=== PATIENT | male | born 1975 | race Caucasian/White ===

== ENCOUNTER → 2019-08-29 09:19 | Outpatient (BNVA) | payer OTHER, SELFPAY | PROVIDERS: Family Provider Family Medicine; PCP Family Medicine; Visit Provider Otolaryngology | DX: J32.9 Chronic sinusitis, unspecified (principal); J34.2 Deviated nasal septum; J34.3 Hypertrophy of nasal turbinates; H69.80 Other specified disorders of Eustachian tube, unspecified ear; H93.13 Tinnitus, bilateral | CPT/HCPCS: 99214; J3301 ==

== ENCOUNTER 2019-09-09 06:45 | Day surgery (SDC) | payer OTHER, SELFPAY ==
[2019-09-08 14:53] VITALS: BMI 33.0
[2019-09-09] VITALS (9 sets, daily range): BP systolic 89–127; BP diastolic 66–94; PULSE 71–98; RESP 14–20; TEMP 36.2–36.8; O2SAT 94–98
--- NOTE | 2019-09-09 08:06 | PM.OP ---
Operative Report Date of procedure: 09/09/19 Preop Diagnosis: Nasal septal deformity, turbinate hypertrophy, chronic eustachian tube dysfunction Post-op diagnosis: same Procedure Done: Nasal septal reconstruction, turbinate reduction, bilateral myringotomy and tube, binocular microscope Pathology: none sent Surgeon: Jim Kirkland Condition: stable Disposition: PACU
[2019-09-09] MEDS: sodium chloride 0.9% 1,000 ML 30 ML IV (08:10)
--- NOTE | 2019-09-09 08:12 | P.HPUD_ITS ---
H&P update H&P Update: DATE OF SURGERY/PROCEDURE: 09/09/19 DATE H&P PERFORMED: 11/13 H&P UPDATE INFORMATION: H&P completed within last 30 days PLANNED PROCEDURE: Operation Date: 09/09/19 08:00 Proposed Procedures p Myringotomy and Tubes [facility] 99491 [id number] 25563 J34.3 H69.80(Not Applicable) - Jim Kirkland M.D s SeptoturbinoplastyNASAL SEPTAL RECONSTRUCTION (08614), BILATERAL INFERIOR NASAL TURBINATE REDUCTION(Not Applicable) - Jim Kirkland M.D Full H&P Perinent History: Social History: Social History Smoking and tobacco status: never smoked Alcohol intake: never
--- NOTE | 2019-09-09 08:12 | PM.HPUD ---
H&P update H&P Update: DATE OF SURGERY/PROCEDURE: 09/09/19 DATE H&P PERFORMED: 08/29/19 H&P UPDATE INFORMATION: H&P completed within last 30 days PLANNED PROCEDURE: Operation Date: 09/09/19 08:00 Proposed Procedures p Myringotomy and Tubes [facility] 38357 [id number] 21430 J34.3 H69.80(Not Applicable) - Jim Kirkland M.D s SeptoturbinoplastyNASAL SEPTAL RECONSTRUCTION (11639), BILATERAL INFERIOR NASAL TURBINATE REDUCTION(Not Applicable) - Jim Kirkland M.D Full H&P Perinent History: Social History: Social History Smoking and tobacco status: never smoked Alcohol intake: never
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
[2019-09-09] MEDS: ofloxacin 0.3% otic 5 mL Btl 3 DROP EAR-BOTH (08:53)
[2019-09-09] MEDS: neomycin-poly-bacitracin oint 28 gm 1 APPLIC TOPICAL (09:03)
[2019-09-09] MEDS: fentaNYL 50 mcg/mL INJ 2mL IVP ×2 (09:25→09:30)
--- NOTE | 2019-09-09 14:44 | ANE.PACU ---
 Inpatient post-anesthesia follow up: Airway intact: Yes Vital signs: Temperature 97.5 F Pulse Rate [Monito r] 72 Respiratory Rate 18 Blood Pressure [Le ft Arm] 127/80 Pulse Oximetry 95 Oxygen Delivery Me thod Room Air Oxygen Flow Rate 8 Fraction of Inspir ed Oxygen Hydration adequate: Yes Nausea and vomiting: No Mental status: Baseline
--- NOTE | 2019-10-03 08:15 | PM.OP ---
Operative Report Date of procedure: October 03, 2019 Pre-op Diagnosis: Nasal septal deformity, turbinate hypertrophy, chronic eustachian tube dysfunction Post-op diagnosis: same Post-op Findings: Deviated septum, turbinate hypertrophy Procedure Done: Reconstruction, turbinate reduction Pathology: none sent Surgeon: Jim Kirkland Anesthesia: General Findings: Deviated septum hypertrophied turbinates Condition: stable Disposition: PACU Brief History: Wesley is a 43-year-old male with nasal obstruction. The goals risks and alternatives of surgical care were discussed and informed consent was obtained. Procedure: The patient was taken to the operating room under satisfactory general endotracheal anesthesiaprepped draped and injected. A right hemitransfixion infection incision was created right anterior posterior left anterior posterior and inferior tunnels were created the deformity was resected and the septum was then affixed to the prespine fascia. Both right and left inferior nasal turbinates were reduced in piecemeal fashion with combination of blunt submucosal dissection. Splints were placed the patient tolerated the procedure well he was allowed awaken to take the recovery room where he was observed during the recovery period postoperative care instructions and counseling were given when the patient met discharge criteria he was discharged in satisfactory and stable condition.
== END 2019-09-09 10:30 | disposition home or self-care (01) ==
PROVIDERS: Family Provider Family Medicine; PCP Family Medicine; Visit Provider Otolaryngology
PROC: (CPT 69420; principal; 2019-09-09 08:00)
PROC: (CPT 30520; 2019-09-09 08:00)
DX: J34.3 Hypertrophy of nasal turbinates (principal); J34.2 Deviated nasal septum
CPT/HCPCS: 30140; 30520; 12345; J1100; J2001; J2704; J3010; J3490; J7030

== ENCOUNTER → 2019-09-16 09:02 | Outpatient (BNVA) | payer OTHER, SELFPAY | PROVIDERS: Family Provider Family Medicine; PCP Family Medicine; Visit Provider Otolaryngology | DX: Z48.89 Encounter for other specified surgical aftercare (principal); J34.3 Hypertrophy of nasal turbinates; J34.2 Deviated nasal septum; H69.83 Other specified disorders of Eustachian tube, bilateral | CPT/HCPCS: 99024; 99214 ==

== ENCOUNTER → 2019-09-30 09:09 | Outpatient (BNVA) | payer OTHER, SELFPAY | PROVIDERS: Family Provider Family Medicine; PCP Family Medicine; Visit Provider Otolaryngology | DX: H69.80 Other specified disorders of Eustachian tube, unspecified ear (principal); J34.3 Hypertrophy of nasal turbinates; J34.2 Deviated nasal septum | CPT/HCPCS: 99024; 99214 ==

== ENCOUNTER → 2022-05-30 14:15 | Outpatient (BNVA) | payer SELFPAY | PROVIDERS: Family Provider Family Medicine; PCP Family Medicine; Visit Provider Nurse Practitioner Family | DX: G43.909 Migraine, unspecified, not intractable, without status migrainosus (principal); M54.2 Cervicalgia; M54.9 Dorsalgia, unspecified; M25.511 Pain in right shoulder | CPT/HCPCS: 72040; 72100; 73030 ==

== ENCOUNTER 2023-02-07 04:05 | Inpatient (IN) | payer SELFPAY ==
[2023-02-07] VITALS (13 sets, daily range): BP systolic 109–148; BP diastolic 62–98; PULSE 95–118; RESP 16–24; TEMP 36.4–37.8; O2SAT 91–98; BMI 32.3
--- NOTE | 2023-02-07 04:16 | ED_ITS ---
HPI - Extremity Problem General: Chief complaint: Extremity Problem,Nontraumatic Stated complaint: R arm infection Time Seen by Provider: 02/07/23 04:07 Source: patient Mode of arrival: ambulatory Limitations: no limitations History of Present Illness: 39-year-old male states he had a sore to the back of his right arm with some warmth to touch he states he tried to pop it he has been having increased erythema and swelling to his right arm he states having pain in that arm as well. He was seen 2 days ago prescribed Bactrim states he had no improvement. Denies any fevers. His arm is quite swollen its worse with movement denies any injuries. Associated symptoms: Deny chest pain, fever(s) or rash Review of Systems Const: Denies: fever(s) or chills ENMT: Denies: throat pain or dental pain Card: Denies: chest pain Resp: Denies: dyspnea GI: Denies: abdominal pain, nausea, vomiting or diarrhea : Denies: dysuria Musc: Reports: extremity pain; Denies: neck pain or back pain Skin/Breast: Denies: rash Neuro: Denies: headache(s) PFSH ED PFSH: Medical History Allergic rhinitis Depression ADHD component History of fracture Hx of substance abuse Insomnia Traumatic brain injury with depressed skull fracture with loss of consciousness Surgical History History of ear surgery Social History Smoking and tobacco status: never smoked Second hand smoke exposure: No Alcohol intake: current Alcohol intake frequency: holidays/special occasions only Alcohol type: beer Desire information about alcohol rehabilitation?: No Substance/Drug Use: former Date of last use: 08/2016 Desire information about substance/drug rehabilitation?: No Counseling given: Yes Type of substance drug use counseling provided: provider counseling Caregiver/support person: Yes Lives independently: No Household members: spouse and children Housing: House Marital status: Number of children: 3 Sexually active: Yes Do you think of yourself as: Straight/Heterosexual Current gender identity: Male Physical Exam 2 Const: COMMON NORMALS: no acute distress, patient oriented x3 and healthy appearing HENMT: COMMON NORMALS: normocephalic and atraumatic HEAD & SCALP: normocephalic and atraumatic Neck/C-Spine: COMMON NORMALS: full ROM and supple Chest: COMMONS NORMALS: normal inspection of the chest and normal palpation of entire chest wall Resp: COMMON NORMALS: normal respiratory effort, No retractions, No use of acc essory muscles and clear to auscultation bilaterally AUSCULTATION: clear to auscultation bilaterally Cardio: COMMON NORMALS: regular rate, regular rhythm and No murmurs present (Cardio) RATE: regular rate RHYTHM: regular rhythm GI: COMMON NORMALS: Normal to inspection, nondistended, normoactive bowel sounds present, Soft to palpation, non-tender and no masses PALPATION: Yes Soft to palpation Extremity: COMMON NORMALS: full ROM NARRATIVE EXTREMITY EXAM: Wound to posterior right arm with erythema warmth to touch and swelling to his forearm and upper arm distal pulses sensation intact Neuro: COMMON NORMALS: patient oriented x3, moves all extremities and no focal motor deficits Psych: COMMON NORMALS: mental status grossly normal, Normal thought process present and cooperative THOUGHT PROCESS: Normal thought process present Skin: COMMON NORMALS: no rashes or lesions noted GENERAL SKIN EXAM: no rashes or lesions noted Course Vital Signs: Vital signs: Vital Signs Temperature 97.5 F L 02/07/23 04:09 Pulse Rate 118 H 02/07/23 04:09 Respiratory Rate 16 02/07/23 04:18 Blood Pressure 136/86 02/07/23 04:09 Pulse Oximetry 95 02/07/23 04:33 Oxygen Delivery Me thod Room Air 02/07/23 04:33 MDM - Extremity (Nontraumatic) Medical Decision Making Patient presents here with cellulitis along with DVT noted to his left upper extremity did speak to the hospitalist will admit at this time. Lab Data 02/07/23 04:20 02/07/23 04:20 Laboratory Results WBC 15.4 10^3/uL (4.0-10.0) H 02/07/23 04:20 RBC 6.19 10^6/uL (4.1-5.3) H 02/07/23 04:20 Hgb 16.9 g/dL (11.7-16.6) H 02/07/23 04:20 Hct 52.9 % (42.0-52.0) H 02/07/23 04:20 MCV 85.5 fl (80-94) 02/07/23 04:20 MCH 27.3 pg (28.0-34.0) L 02/07/23 04:20 MCHC 31.9 g/dL (30.0-36.0) 02/07/23 04:20 RDW 13.5 % (12.1-15.1) 02/07/23 04:20 Plt Count 191 10^3/cmm (130-400) 02/07/23 04:20 MPV 9.9 fL (7.4-10.4) 02/07/23 04:20 Neut % (Auto) 85.4 % 02/07/23 04:20 Lymph % (Auto) 6.5 % 02/07/23 04:20 Mchenry % (Auto) 7.1 % 02/07/23 04:20 Eos % (Auto) 0.2 % 02/07/23 04:20 Baso % (Auto) 0.3 % 02/07/23 04:20 Neut # (Auto) 13.18 10^3/uL (1.8-7.7) H 02/07/23 04:20 Lymph # (Auto) 1.0 10^3/uL (0.8-4.8) 02/07/23 04:20 Mchenry # (Auto) 1.1 10^3/uL (0.2-0.9) H 02/07/23 04:20 Eos # (Auto) 0.0 10^3/uL (0.0-0.8) 02/07/23 04:20 Baso # (Auto) 0.1 10^3/uL (0.0-0.1) 02/07/23 04:20 Nucleated RBC % (auto) 0 % 02/07/23 04:20 Nucleated RBCs # 0.0 /100WBC 02/07/23 04:20 ESR 7 mm/hr (0-10) 02/07/23 04:20 Sodium 134 mmol/L (136-145) L 02/07/23 04:20 Potassium 4.3 mmol/L (3.5-5.1) 02/07/23 04:20 Chloride 95 mmol/L (98-107) L 02/07/23 04:20 Carbon Dioxide 24 mmol/L (22-29) 02/07/23 04:20 Anion Gap 19.3 (5-19) H 02/07/23 04:20 BUN 12 mg/dL (6-20) 02/07/23 04:20 Creatinine 1.1 mg/dL (0.7-1.2) 02/07/23 04:20 GFR Calculation 71.4 mL/min (90-130) L 02/07/23 04:20 Glucose 126 mg/dL (65-115) H 02/07/23 04:20 Calculated Osmolality 279 mOsm/kg (285-295) L 02/07/23 04:20 Calcium 9.7 mg/dL (8.5-10.5) 02/07/23 04:20 Total Bilirubin 1.0 mg/dL (0.15-1.2) 02/07/23 04:20 AST 19 U/L (0-40) 02/07/23 04:20 ALT 18 U/L (0-41) 02/07/23 04:20 Alkaline Phosphatase 58 U/L (40-130) 02/07/23 04:20 C-Reactive Protein 279.3 mg/L (0.0-4.9) H 02/07/23 04:20 Total Protein 7.8 g/dL (6.6-8.7) 02/07/23 04:20 Albumin 3.9 g/dL (3.5-5.2) 02/07/23 04:20 Globulin 3.9 g/dL (1.3-4.6) 02/07/23 04:20 Discharge Plan Discharge Patient Disposition: Admitted As Inpatient Clinical Impression: Deep venous thrombosis of upper extremity, Cellulitis Condition: Stable Prescriptions: No Action cetirizine [All Day Allergy (cetirizine)] 10 mg tablet 10 mg PO .at bedtime 30 Days Qty: 30 11RF diclofenac sodium [Voltaren] 1 % gel 4 g topical QID Qty: 100 2RF Rx Instructions: right elbow sulfamethoxazole-trimethoprim [Bactrim DS] 800-160 mg tablet 1 tab PO BID 10 Days Qty: 20 0RF methocarbamol 750 mg tablet 750 mg PO Q8H Qty: 30 0RF Referrals: Bushra Maddox MD [Primary Care Provider] - Coding Level of Care Code ED Mailing Jogger for Chg Fwsobeida
[2023-02-07] MEDS: ondansetron 2 mg/ML SDV 2 mL 4 MG IVP (04:18)
[2023-02-07] MEDS: morphine 4 mg/mL SDV 1 mL IVP (04:18)
[2023-02-07 04:25] LABS: Erythrocyte Sedimentation Rate 7 mm/hr (0-10)
--- NOTE | 2023-02-07 04:26 | USR_ITS ---
PROCEDURE INFORMATION: Exam: US Duplex Right Upper Extremity Veins, Limited Exam date and time: 02/07/2023 4:27 AM Age: 47 years old Clinical indication: Pain; Edema, localized; Upper extremity, right; Arm, upper; Patient HX: 1) RT arm swelling and erythema x 3 days. 2) was treated at [facility] for staph infection. 3) patient has history of staph infections and developed a pustule posterior right elbow 3 days ago. He is being treated with antibiotics. No history of dvt per patient. TECHNIQUE: Imaging protocol: Real-time duplex ultrasound of the right Upper Extremity with 2-D pal scale, color Doppler flow and spectral waveform analysis with image documentation. Limited exam focused on the right upper extremity veins. COMPARISON: US soft tissue/extremity [id number] 08/16/2016 2:13 PM FINDINGS: Right deep veins: There is occlusive thrombus in the right radial vein in the proximal forearm. The ulnar vein is patent. Right internal jugular vein is patent. The right axillary vein is patent. The right subclavian vein is not definitely imaged. The right brachial veins demonstrate normal color Doppler signal with poor augmentation. The allied health teacher reports extensive deep venous thrombosis throughout the right subclavian axillary and brachial veins which is not demonstrated on the images. Right superficial veins: There is occlusive thrombus in the distal right cephalic vein. The proximal cephalic vein is patent. There is occlusive thrombus in the distal right basilic vein. There is occlusive thrombus in a right antecubital vein. Soft tissues: Unremarkable. US/[place] [id number] IMPRESSION: 1. Extensive superficial vein thrombosis in the right upper extremity. 2. Deep vein thrombosis in the right radial vein. 3. Nondiagnostic evaluation of the right axillary, subclavian, and brachial veins. Selected images demonstrate patency of these veins, but the allied health teacher reports extensive thrombus in these veins. Recommend repeat ultrasound.
[2023-02-07 04:27] LABS: Basophils # 0.1 10^3/uL (0.0-0.1); Basophils % 0.3 %; Eosinophils % 0.2 %; Hematocrit 52.9 % (42.0-52.0); Hemoglobin 16.9 g/dL (11.7-16.6); Lymphocytes % 6.5 %; Mean Corpuscular HGB Conc 31.9 g/dL (30.0-36.0); Mean Corpuscular Hemoglobin 27.3 pg (28.0-34.0); Mean Corpuscular Volume 85.5 fl (80-94); Mean Platelet Volume 9.9 fL (7.4-10.4); Monocytes # 1.1 10^3/uL (0.2-0.9); Monocytes % 7.1 %; Neutrophils # 13.18 10^3/uL (1.8-7.7); Neutrophils % 85.4 %; Nucleated Red Blood Cells % 0 %; Platelet Count 191 10^3/cmm (130-400); Red Blood Count 6.19 10^6/uL (4.1-5.3); Red Cell Distribution Width 13.5 % (12.1-15.1); White Blood Count 15.4 10^3/uL (4.0-10.0)
[2023-02-07 04:47] LABS: Alanine Aminotransferase 18 U/L (0-41); Albumin Level 3.9 g/dL (3.5-5.2); Alkaline Phosphatase 58 U/L (40-130); Anion Gap 19.3 (5-19); Aspartate Amino Transferase 19 U/L (0-40); Blood Urea Nitrogen 12 mg/dL (6-20); C Reactive Protein 279.3 mg/L (0.0-4.9); Calcium 9.7 mg/dL (8.5-10.5); Carbon Dioxide 24 mmol/L (22-29); Chloride 95 mmol/L (98-107); Globulin 3.9 g/dL (1.3-4.6); Glomerular Filtration Rate 71.4 mL/min (90-130); Glucose 126 mg/dL (65-115); Osmolality Calculated 279 mOsm/kg (285-295); Potassium 4.3 mmol/L (3.5-5.1); Sodium 134 mmol/L (136-145); Total Protein 7.8 g/dL (6.6-8.7)
[2023-02-07] MEDS: enoxaparin 120 mg/0.8 mL Syringe 110 MG SUBCUT (05:14)
--- NOTE | 2023-02-07 05:57 | PC.NURSE ---
Report called to ROSANA De Leon on Med-Surg
--- NOTE | 2023-02-07 06:03 | P.HP_ITS ---
Providers/Chief Complaint Admitting Physician: Vanessa Wahl MD Primary Care Provider: Bushra Maddox MD Chief Complaint: R arm infection History of Present Illness Eamon Johns is a 47 year old male with h/o depression, ADHD, insomnia presented with c/o right extremity pain and swelling since 3 days. He reports he had a sore on the back of the right upper arm which he popped and the extremity started swelling up. pain and swelling is accompanied by fever and redness. He was seen by his PCP 2 days ago who prescribed PO bactrim DS but there was no relief. He denies any IVDA. Review of Systems Const: Reports: fever(s); Denies: chills ENMT: Denies: throat pain or dental pain Card: Denies: chest pain Resp: Denies: dyspnea GI: Denies: abdominal pain, nausea, vomiting or diarrhea : Denies: dysuria Musc: Reports: extremity pain; Denies: neck pain or back pain Skin/Breast: Denies: rash Neuro: Denies: headache(s) Medications/Allergies Home Medications Medication Instructions Recorded Confirmed Last Taken Type cetirizine 10 mg tablet (All Day 10 mg PO .at bedtime 30 days #30 04/20/20 02/05/23 Unknown Rx Allergy (cetirizine)) tabs diclofenac sodium 1 % topical gel 4 g topical QID #100 grams 07/08/20 02/05/23 Unknown Rx (Voltaren) methocarbamol 750 mg tablet 750 mg PO Q8H #30 tabs 05/30/22 02/05/23 Unknown Rx sulfamethoxazole 800 1 tab PO BID 10 days #20 tabs 02/05/23 02/05/23 Unknown Rx mg-trimethoprim 160 mg tablet (Bactrim DS) Allergies Allergy/AdvReac Type Severity Reaction Status Date / Time No Known Allergies Allergy Verified 05/30/22 11:02 PFSH Acute PFSH: Medical History Allergic rhinitis Depression ADHD component History of fracture Hx of substance abuse Insomnia Traumatic brain injury with depressed skull fracture with loss of consciousness Surgical History History of ear surgery Social History Smoking and tobacco status: never smoked Second hand smoke exposure: No Alcohol intake: current Alcohol intake frequency: holidays/special occasions only Alcohol type: beer Desire information about alcohol rehabilitation?: No Substance/Drug Use: former Date of last use: 08/2016 Desire information about substance/drug rehabilitation?: No Counseling given: Yes Type of substance drug use counseling provided: provider counseling Caregiver/support person: Yes Lives independently: No Household members: spouse and children Housing: House Marital status: Number of children: 3 Sexually active: Yes Do you think of yourself as: Straight/Heterosexual Current gender identity: Male Vitals/I&O/Wt Last Vital Signs Temp 97.5 F L 02/07/23 04:09 Pulse 105 H 02/07/23 06:00 Resp 16 02/07/23 04:18 BP 146/95 02/07/23 06:00 Pulse Ox 95 02/07/23 06:00 O2 Del Method Room Air 02/07/23 06:00 Weight last 48 hrs Weight 111.13 kg Physical Exam Narrative: AAOx#, cooperative, obese, anxious, not in acute distress Ext- right upper extremity swollen, erythematous, tender to touch and warm. subcentimeter ulcer seen on the posterior surface of elbow.non bleeding. chest clear to ascultation B/L CVS normal exam Abd normal Data 02/07/23 04:20 02/07/23 04:20 US Vascular: Radiologist's impression: report pending but as per the ER physician US shows right upper extremity e xtensive DVT A&P Assessment and plan (1) Deep venous thrombosis of upper extremity: likely secondary to cellulitis (2) Cellulitis: Due to folliculitis and erosion. Plan Admit to medical floor elevated CRP, leucocytosis due to cellulitis, will start IV unasyn 1.5g q6h IV pantoprazole 40mg q12h IV fluids normal saline at 100ml/hr recheck CBC in am DVT secondary to cellulitis will start SQ lovenox 100mg q12h follow up US venous doppler report. continue to monitor Attestations Medical Necessity Statement*: right upper extremity cellulitis associated with DVT, will need more than 3 days of hospitalization. Time Spent in Patient Care: 30min Coding Level of Care Code 16315 Diagnoses Deep venous thrombosis of upper extremity I82.629 Cellulitis L03.90 Time Spent (min) 30
[2023-02-07] MEDS: sodium chlor 0.9% + KCl 20 mEq 20 MEQ/1,000 ML BAG 100 MEQ IV (06:18)
[2023-02-07] MEDS: oxyCODONE 5 mg IR Tab/Cap PO (06:21)
--- NOTE | 2023-02-07 06:31 | ECG_ITS ---
[facility] Test Date: 2023-02-07 Pat Name: Eamon Johns Department: Room: 255 Gender: Male Label Pinker: : 1975 Requested By: Vanessa Wahl Order Number: [id number] Nanette MD: Conrad Morfin M.D. Measurements Intervals [place] Rate: 107 P: 66 WI: 144 QRS: -3 QRSD: 112 T: 38 QT: 349 QTc: 468 Interpretive Statements SINUS TACHYCARDIA POSSIBLE LEFT ATRIAL ENLARGEMENT [-0.1mV P-WAVE IN V1/V2] MODERATE INTRAVENTRICULAR CONDUCTION DELAY [110+ ms QRS DURATION] NONSPECIFIC ST ELEVATION [0.05+ mV ST ELEVATION] No previous ECG available for comparison Electronically Signed On 02-07-2023 13:55:58 CDT by Conrad Morfin M.D. [email or web address]
[2023-02-07] MEDS: pantoprazole 40 mg SDV IVP (06:35)
[2023-02-07 10:07] LABS: Estmated Average Glucose 120; Hemoglobin A1C 5.8 % (4.0-6.0)
--- NOTE | 2023-02-07 10:07 | PC.PHAR ---
PHARMACY TO DOSE CONSULT - VANCOMYCIN AND ZOSYN With the patient's current vital and lab results, the vancomycin dose was calculated at 1750mg every 12 hours with a predicted peak of 32.0 mcg/ml and a trough of 11.50 mcg/ml. Prior to the 4th dose, a trough will be entered by pharmacy and adjustments made accordingly. For the patient's Zosyn, he is indicated for 3.375g every 8 hours with our extended-infusion run time of 4 hours per dose. Pharmacy will continue to monitor this patient's renal and lab values making any adjustments as necessary. Please let us know if there is anything else we can do in the care of this patient. Thanks, Gabo Bowman, Pharm.D
[2023-02-07 10:17] LABS: Procalcitonin 0.48 ng/mL (0-0.5); Thyroid Stimulating Hormone 3.63 uIU/mL (0.27-4.20); Vitamin B12 265 pg/mL (232-1245)
--- NOTE | 2023-02-07 10:17 | CT_ITS ---
WS: [id number] CT angiogram RIGHT upper extremity. HISTORY: Possible compartment syndrome. Staph infection. CT angiogram performed RIGHT upper extremity. Omniscan 350; 100 mL IV. There is good contrast opacification of the RIGHT subclavian, axillary and brachial artery. Contrast opacification at the elbow is very limited due to motion. Arteries below the elbow are not well opaci fied. There is extensive thrombus filling the cephalic and portions of the brachial vein. Continued thrombu s extends into the veins below the elbow. Opacification is limited. Very limited evaluation due to th e contrast opacification. There is a large amount of soft tissue edema beginning in the mid humerus extending through the elbow into the lower extremity. Visualized RIGHT lung is clear. 2.5 cm possible solid mass RIGHT kidney. Breathing motion artifact. [place] [id number] IMPRESSION: 1. Limited opacification RIGHT upper extremity arterial system due to contrast injection and motion. 2. No occlusion or stenosis within the visualized RIGHT subclavian, axillary or brachial arteries. Arteries below the elbow are limited. 3. Extensive acute and posterior noted within a large portion of the superficia l cephalic vein and portions of the deep brachial vein. Suspected additional arrieta perficial thrombophlebitis distal to the elbow joint. 4. Large amount of soft tissue edema surrounding the mid humerus through the fo rearm.
[2023-02-07 10:28] LABS: Iron 20 ug/dL (59-158); Percent Saturation 9.8 % (20-50); Total Iron Binding Capacity 203 mcg/dl; Unsaturated Iron Binding 183 ug/dL (112-347)
[2023-02-07] MEDS: sodium chloride 0.9% 1,000 ML 75 ML IV ×2 (10:29→22:25)
[2023-02-07] MEDS: HYDROmorphone 1 mg/mL INJ 1 mL 0.2 MG IVP (10:31)
[2023-02-07] MEDS: piperacillin-tazobactam 3.375 GM in sodium chloride 0.9% (plus) 50 ML IV ×2 (10:36→22:24)
[2023-02-07] MEDS: iohexol 350 mg/mL 500 mL Btl (per mL) IV (11:04)
[2023-02-07] MEDS: ketorolac 30 mg/mL INJ 15 MG IVP ×2 (12:36→20:51)
[2023-02-07 13:05] LABS: Amphetamines Screen Urine Positive (Negative); Barbiturates Screen Urine Negative (Negative); Benzodiazepines Screen Urine Negative (Negative); Cocaine Screen Urine Negative (Negative); Opiate Screen Urine Positive (Negative); PCP Screen Urine Negative (Negative); THC Screen Urine Negative (Negative)
[2023-02-07] MEDS: heparin drip 25,000 UNIT/500 ML PREMIX 32 UNIT IV (13:30)
[2023-02-07 15:54] LABS: Add Urine Microscopic? NO; Charge for UA Resulting for Rev
[2023-02-07 15:59] LABS: Bilirubin Urine Neg (Negative); Blood Urine Neg (Negative); Glucose Urine UA Norm (Normal); Ketones Urine Negative (Negative); Leukocyte Esterase Urine Negative (Negative); Nitrate Urine Negative (Negative); Protein Urine Neg (Negative); Urine Appearance Clear (CLEAR); Urine Color Yellow (Yellow); Urobilinogen Urine 4 mg/dL (Negative); pH Urine 5 (5-7)
--- NOTE | 2023-02-07 16:01 | PM.PN ---
Subjective Subjective: Seen multiple times during the day. Admitted earlier today morning. On examination patient laying in bed, complaining of pain. Arm elevated. Denies any nausea, vomiting, headache. States he last used amphetamines was around 4 days ago. Denies any insect bite. States it all started for him on Sunday when there was a boil at the backside of his arm which he popped. Has been taking Bactrim since then. Tmax since admission 100.1 Fahrenheit. Vitals/I&O/Wt Last Vital Signs Temp 99.2 F 02/07/23 11:48 Pulse 95 02/07/23 11:48 Resp 16 02/07/23 11:48 BP 114/76 02/07/23 11:48 Pulse Ox 96 02/07/23 11:48 O2 Del Method Room Air 02/07/23 11:48 02/07/23 02/07/23 02/07/23 06:59 14:59 22:59 Intake Total 1420.417 / 1420.417 Balance 1420.417 / 1420.417 Weight last 48 hrs Weight 112.037 kg Weight 111.13 kg Physical Exam Narrative: General: In distress because of pain, AOx3, pleasant HEENT: PERRLA, pupils bilaterally equal and reactive Chest: Normal vesicular breath sounds all over lung fontenot without any added sounds CVS: S1-S2 regular, no murmurs, no tachycardia, no gallops, no rubs Abdomen: Soft, nontender, no organomegaly, bowel sounds present, morbidly obese Neuro: No focal deficits, no facial deformity, AO x3, power 5/5 in all limbs Extremity: Right upper limb edematous, whole arm, diffuse erythema all over the sparing the shoulder. Small boil present at the posterior aspect of the arm. No fluctuation. Radial pulse palpated. Data 02/07/23 04:20 02/07/23 04:20 Micro: Microbiology 02/07/23 05:57 Blood Culture - Preliminary Blood SPECIMEN COLLECTED 02/07/23 05:55 Blood Culture - Preliminary Blood SPECIMEN COLLECTED A&P Assessment and plan (1) Deep venous thrombosis of upper extremity: Upper limb Doppler results appreciated. As per the conversation with virtual radiologist it seems patient has extensive DVT all over the right upper limb along with superficial vein thrombosis. He is requesting for a repeat study to be done. Stat right upper limb duplex ordered. For now switch to heparin drip given the extensive nature of the DVT. Patient does give history of IV drug abuse which could be the cause of DVT. For now we will check ESR, CRP, ANUSHA, antiphospholipid to rule out hematological disorder. (2) Cellulitis: Extensive seen on upper limb Dopplers. Most likely in setting of IV drug abuse. Check drug screen, A1c, lipid panel. Check blood culture, MRSA swab. For now we will broaden coverage for MRSA and Pseudomonas. Switch to vancomycin and Zosyn. For pain control start on Dilaudid 0.4 every 6 hours, [place] 5 mg Q8 as needed , tramadol 50 mg every 6 hours as needed. Start on Toradol to Reduce Inflammation. High Concerns for Compartment Syndrome. Will get CTA right arm for further evaluation. Every 4-hour neurovascular checks. If needed will consult orthopedics for further recommendation. (3) Amphetamine abuse: Drug screen. Check HIV, hepatitis panel. (4) Depression: Qualifiers: Depression Type: major depressive disorder Major depression recurrence: single episode Active/Remission status: currently active Major depression episode severity: moderate Qualified Code(s): F32.1 - Major depressive disorder, single episode, moderate Plan Full code. Regular diet. Full dose heparin will suffice as DVT prophylaxis. Attestations Medical Necessity Statement*: Requires further hospitalization for management of extensive DVT of the right arm, cellulitis while compartment syndrome is ruled out Coding Level of Care Code Critical Care >/= 30 minutes Critical care time (in minutes): 60 The high probability of a clinically significant, sudden or life threatening deterioration, as referenced in this documentation, required my full and direct attention, intervention and personal management. The critical care time shown is in addition to time spent performing any reported separately billable procedures and includes the following: [x] Data and vital sign review and interpretation [x] Patient assessment, examination and intervention [x] Medication orders and management [x] Patient/Family updates as able [x] Care Coordination and Documentation. Diagnoses Deep venous thrombosis of upper extremity I82.629 Cellulitis L03.90 Amphetamine abuse F15.10 Depression F32.1 Depression Type: major depressive disorder Major depression recurrence: single episode Active/Remission status: currently active Major depression episode severity: moderate
--- NOTE | 2023-02-07 18:37 | PC.NURSE ---
Patient refused phlebotomy to draw labs at appox 1500. Discussed with patient trying to get an IV placed in his foot. patient refused, even though he was agreeable earlier. Dr. Hatfield notified. verbal orders for PICC line placement received and nurse charge rn notified.
--- NOTE | 2023-02-07 20:38 | XRR_ITS ---
PROCEDURE INFORMATION: Exam: XR Chest Exam date and time: 02/07/2023 7:53 PM Age: 47 years old Clinical indication: Device placement; Picc; Additional info: Picc placement TECHNIQUE: Imaging protocol: Radiologic exam of the chest. Views: 1 view. COMPARISON: CR XR chest 1V [id number] 08/19/2016 12:06 PM FINDINGS: Tubes, catheters and devices: Left PICC line with tip in the mid SVC. Lungs: Unremarkable. No consolidation. Pleural spaces: Unremarkable. No pleural effusion. No pneumothorax. Heart/Mediastinum: Unremarkable. No cardiomegaly. Bones/joints: Old healed bilateral clavicle fractures. Old healed left rib fractures. XR/XR chest 1V portable [id number] IMPRESSION: No acute findings.
--- NOTE | 2023-02-07 21:19 | PC.NURSE ---
PICC Insertion Consulted by boarding house manager for PICC placement. Upon arrival to room, discussed procedure with patient and obtained written consent. RUE limb alert due to DVT. Assessed LUE and determined L basilic vein to be best target for cannulation due to size and lack of evidence of thrombus or stenosis. Using US guidance, MST and sterile technique, accessed vein x1 stick. Advanced device without resistance. Positive blood return in all lumens. Flushed easily in all lumens. Device secured. EBL <10mL. Patient tolerated well. X-Ray confirmation obtained; RN visualized PICC tip in SVC; pending radiologist confirmation. Reported to primary nurse Shari.
[2023-02-07] MEDS: trazodone 100 mg Tablet PO (21:20)
[2023-02-07 21:22] LABS: Partial Thromboplastin Time 42.3 SECONDS (23.9-36.7)
[2023-02-07] MEDS: heparin 5,000 unit/mL INJ 1 mL IV (21:32)
[2023-02-07 21:43] LABS: HIV 1 & 2 Antibody Non-Reactive (Non-Reactiv); HIV 1 & 2 Antigen Non-Reactive (Non-Reactiv)
[2023-02-07 21:53] LABS: Hepatitis A Antibody IgM Non-Reactive (Nonreactive); Hepatitis B Core AB, Total Non-Reactive (Nonreactive); Hepatitis B Surface AB 3.5 (11.5-1000); Hepatitis B Surface Antigen Non-Reactive (Nonreactive); Hepatitis C Virus Antibody Non-Reactive (Nonreactive)
[2023-02-07] MEDS: vancomycin 1,750 MG/350 ML PIGGYBACK 233.33 MG IV (22:24)
--- NOTE | 2023-02-08 01:11 | PC.PHAR ---
Vancomycin Trough scheduled for 02/09/23 @ 0930. Please hold 02/09/23 1030 dose until drawn. Will continue to follow. Thank you, Antonella Arzola [facility]
--- NOTE | 2023-02-08 02:07 | PC.NURSE ---
Pt put call light on while this nurse was doing narc count, pt yelled out hello does anyone fucking work here This nurse and others responded, when entering the room pt was sitting up on the side of the bed and yells my call light has been going on for forever and I have to yell to get anyones attention around this damn place . Apologized to pt and informed that his call light had only been going off for a little over a minute and was educated that he could not be yelling in a hospital. Pt yelled I'm not going to be taking an ass chewing because you can't come in here and answer my god damn light. Pt resting comfortable in bed with call light off when this nurse left.
[2023-02-08] MEDS: ketorolac 30 mg/mL INJ 15 MG IVP ×4 (02:53→20:12)
[2023-02-08 03:18] VITALS: BP 111/74; PULSE 100; RESP 19; TEMP 36.8; O2SAT 96
[2023-02-08 03:43] LABS: Basophils % 0.4 %; Eosinophils # 0.2 10^3/uL (0.0-0.8); Hematocrit 43.2 % (42.0-52.0); Hemoglobin 13.8 g/dL (11.7-16.6); Lymphocytes # 1.2 10^3/uL (0.8-4.8); Lymphocytes % 13.5 %; Mean Corpuscular HGB Conc 31.9 g/dL (30.0-36.0); Mean Corpuscular Hemoglobin 27.8 pg (28.0-34.0); Mean Corpuscular Volume 86.9 fl (80-94); Mean Platelet Volume 10.8 fL (7.4-10.4); Monocytes % 11.5 %; Neutrophils % 72.2 %; Nucleated Red Blood Cells % 0 %; Platelet Count 179 10^3/cmm (130-400); Red Blood Count 4.97 10^6/uL (4.1-5.3); Red Cell Distribution Width 13.5 % (12.1-15.1)
[2023-02-08 03:56] LABS: Partial Thromboplastin Time 46.7 SECONDS (23.9-36.7)
[2023-02-08 04:05] LABS: Alanine Aminotransferase 26 U/L (0-41); Albumin Level 3.2 g/dL (3.5-5.2); Alkaline Phosphatase 53 U/L (40-130); Anion Gap 12.8 (5-19); Aspartate Amino Transferase 22 U/L (0-40); Blood Urea Nitrogen 17 mg/dL (6-20); Calcium 8.1 mg/dL (8.5-10.5); Carbon Dioxide 24 mmol/L (22-29); Chloride 104 mmol/L (98-107); Chol HDL Ratio 3.23 mg/dL (1.0-5.00); Cholesterol 100 mg/dL (0-200); Globulin 2.9 g/dL (1.3-4.6); Glomerular Filtration Rate 64.6 mL/min (90-130); Glucose 127 mg/dL (65-115); HDL Cholesterol 31 mg/dL (60-100); LDL Cholesterol Calculated 49 mg/dL (50-129); Osmolality Calculated 287 mOsm/kg (285-295); Potassium 3.8 mmol/L (3.5-5.1); Sodium 137 mmol/L (136-145); Total Bilirubin 0.5 mg/dL (0.15-1.2); Total Protein 6.1 g/dL (6.6-8.7); Triglycerides 99 mg/dL (0-150); VLDL Cholestrol Calculation 20 mg/dL (0-30)
[2023-02-08] MEDS: heparin 5,000 unit/mL INJ 1 mL IV ×3 (04:10→18:51)
[2023-02-08] MEDS: heparin drip 25,000 UNIT/500 ML PREMIX 39 UNIT IV (04:10)
[2023-02-08 04:19] LABS: Folate Level 9.6 ng/mL (4.5-32.2)
[2023-02-08] MEDS: piperacillin-tazobactam 3.375 GM in sodium chloride 0.9% (plus) 50 ML IV ×3 (05:14→20:20)
[2023-02-08 07:57] VITALS: BP 126/85; PULSE 61; RESP 16; TEMP 36.5; O2SAT 99
--- NOTE | 2023-02-08 09:11 | PC.NURSE ---
Pt yelling very loud, came into room he was complaining he wanted someone older than 12 answering call lights. Pt yelling at doctor Seth wanting to be taking care of. This nurse introduced self and explained we anwsering callights and IV alarms. Tried explaining what the IV alarms are for and that he still had heparin running and it was he ATB that had alarmed. He quickly sat up still attached to IV and this nurse stated please be careful not to pull out. The pt proceeded to yell at me that he was not going to do that. Gave him his pain med and tried to ask questions and he said are kidding me. This nurse explained we had to do that for orientation and no decline. Pt turned over in bed and huffed. Informed pt I wound be back for other medication. Informed MD Hatfield.
[2023-02-08] MEDS: vancomycin 1,750 MG/350 ML PIGGYBACK 233.3 MG IV (10:25)
[2023-02-08 11:07] LABS: Partial Thromboplastin Time 46.2 SECONDS (23.9-36.7)
[2023-02-08 12:00] VITALS: BP 140/95; PULSE 91; RESP 16; TEMP 36.8; O2SAT 95
--- NOTE | 2023-02-08 14:20 | PM.PN ---
Subjective Subjective: No acute events overnight. Today morning on examination patient seen laying comfortably in bed. States pain is better. Arm seems to be less erythematous today. States still not able to make a complete fist but able to move his fingers better. Has remained hemodynamically stable and afebrile. Denies any tingling or numbness in any of his fingers. Blood work appreciated for resolution of leukocytosis, stable PTT, stable CMP. Patient has been having episodes of agitation and acting out at nurses where he is shouted at the nurses at few occasions. We did discuss in detail with the patient at bedside that nurses are trying to do their best to help him and it is very important for his care that he is compliant and respectful to the nurses for the care they are providing. Patient states he is not happy whenever the pump beeps and needs somebody to take care of it LIBORIO but is apologetic. Vitals/I&O/Wt Last Vital Signs Temp 98.3 F 02/08/23 12:00 Pulse 91 02/08/23 12:00 Resp 16 02/08/23 12:00 BP 140/95 02/08/23 12:00 Pulse Ox 95 02/08/23 12:00 O2 Del Method Room Air 02/08/23 12:00 02/07/23 02/08/23 02/08/23 22:59 06:59 14:59 Intake Total 737.6 / 2158.017 762.4 / 2920.417 640 / 640 Output Total 200 / 200 Balance 537.6 / 1958.017 762.4 / 2720.417 640 / 640 Weight last 48 hrs Weight 112.037 kg Weight 111.13 kg Physical Exam Narrative: General: In distress because of pain, AOx3, HEENT: PERRLA, pupils bilaterally equal and reactive Chest: Normal vesicular breath sounds all over lung fontenot without any added sounds CVS: S1-S2 regular, no murmurs, no tachycardia, no gallops, no rubs Abdomen: Soft, nontender, no organomegaly, bowel sounds present, morbidly obese Neuro: No focal deficits, no facial deformity, AO x3, power 5/5 in all limbs Extremity: Right upper limb less edematous, whole arm, diffuse erythema now only localized to posterior upper arm. Small boil present at the posterior aspect of the arm. No fluctuation. Radial pulse palpated. All the peripheral skin intact, no cyanosis, good blood return. Data 02/08/23 03:14 02/08/23 03:14 Micro: Microbiology 02/07/23 10:00 MRSA Culture - Final Nose 02/07/23 05:57 Blood Culture - Preliminary Blood NEGATIVE TO DATE 02/07/23 05:55 Blood Culture - Preliminary Blood NEGATIVE TO DATE A&P Assessment and plan (1) Deep venous thrombosis of upper extremity: Upper limb Doppler results appreciated. Consistent with deep vein thrombosis of the right radial vein, possibly of the right a axillary and brachial vein though it was determined to be a poor study could not be determined. Superficial vein extensive thrombosis. CT of the arm appreciated. Continue with heparin drip for overall 48 to 72 hours. We will switch over to oral Eliquis on discharge for at least 6 months at which time he should have repeat right upper extremity duplex done. Repeat ESR and CRP in AM. (2) Cellulitis: Extensive seen on upper limb Dopplers. Most likely in setting of IV drug abuse. MRSA negative. Continue with Zosyn. Stop vancomycin. For pain control start on Dilaudid 0.4 every 6 hours, [place] 5 mg Q8 as needed , tramadol 50 mg every 6 hours as needed. Start on Toradol to Reduce Inflammation for next 24 hours. Continue with neurovascular checks every shift. If needed will consult orthopedics for further recommendation. (3) Amphetamine abuse: Seen on drug screen. Negative HIV, hepatitis panel. (4) Depression: Qualifiers: Depression Type: major depressive disorder Major depression recurrence: single episode Active/Remission status: currently active Major depression episode severity: moderate Qualified Code(s): F32.1 - Major depressive disorder, single episode, moderate Plan Keep right arm elevated. Full code. Regular diet. Full dose heparin will suffice as DVT prophylaxis. Attestations Medical Necessity Statement*: Requires further hospitalization for management of extensive DVT of right upper extremities along with cellulitis in a patient with amphetamine abuse Diagnoses Deep venous thrombosis of upper extremity I82.629 Cellulitis L03.90 Amphetamine abuse F15.10 Depression F32.1 Depression Type: major depressive disorder Major depression recurrence: single episode Active/Remission status: currently active Major depression episode severity: moderate
--- NOTE | 2023-02-08 15:35 | PC.NURSE ---
Measurements of elbow:14 1/8 inches bicep: 15 1/4 inces
[2023-02-08 15:56] VITALS: BP 148/85; PULSE 102; RESP 16; TEMP 36.7; O2SAT 97
[2023-02-08] MEDS: heparin drip 25,000 UNIT/500 ML PREMIX 39.01 UNIT IV (17:17)
[2023-02-08 18:38] LABS: Partial Thromboplastin Time 45.1 SECONDS (23.9-36.7)
[2023-02-08 19:38] VITALS: BP 147/88; PULSE 101; RESP 18; TEMP 36.9; O2SAT 98
[2023-02-08] MEDS: trazodone 100 mg Tablet PO (20:20)
[2023-02-08] MEDS: sodium chloride 0.9% 1,000 ML 75 ML IV (22:01)
[2023-02-09] VITALS: BP 142/88; PULSE 107; RESP 18; TEMP 37.6; O2SAT 97
[2023-02-09 01:28] LABS: Basophils % 0.4 %; Eosinophils # 0.3 10^3/uL (0.0-0.8); Eosinophils % 3.6 %; Hematocrit 40.3 % (42.0-52.0); Hemoglobin 13.2 g/dL (11.7-16.6); Lymphocytes # 1.3 10^3/uL (0.8-4.8); Lymphocytes % 14.8 %; Mean Corpuscular HGB Conc 32.8 g/dL (30.0-36.0); Mean Corpuscular Hemoglobin 28.2 pg (28.0-34.0); Mean Corpuscular Volume 86.1 fl (80-94); Mean Platelet Volume 11.2 fL (7.4-10.4); Monocytes # 0.9 10^3/uL (0.2-0.9); Monocytes % 9.6 %; Neutrophils # 6.37 10^3/uL (1.8-7.7); Neutrophils % 70.7 %; Nucleated Red Blood Cells % 0 %; Platelet Count 224 10^3/cmm (130-400); Red Blood Count 4.68 10^6/uL (4.1-5.3); Red Cell Distribution Width 13.4 % (12.1-15.1)
[2023-02-09 02:32] LABS: Partial Thromboplastin Time 49.7 SECONDS (23.9-36.7)
[2023-02-09 02:33] LABS: Alanine Aminotransferase 28 U/L (0-41); Albumin Level 2.8 g/dL (3.5-5.2); Alkaline Phosphatase 47 U/L (40-130); Blood Urea Nitrogen 13 mg/dL (6-20); Calcium 7.9 mg/dL (8.5-10.5); Carbon Dioxide 22 mmol/L (22-29); Chloride 106 mmol/L (98-107); Globulin 2.9 g/dL (1.3-4.6); Glomerular Filtration Rate 120.4 mL/min (90-130); Glucose 101 mg/dL (65-115); Osmolality Calculated 286 mOsm/kg (285-295); Sodium 138 mmol/L (136-145); Total Bilirubin 0.6 mg/dL (0.15-1.2); Total Protein 5.7 g/dL (6.6-8.7)
[2023-02-09 02:36] LABS: Anion Gap 13.8 (5-19); Aspartate Amino Transferase 22 U/L (0-40); Potassium 3.8 mmol/L (3.5-5.1)
[2023-02-09] MEDS: LORazepam 0.5 mg Tablet PO (02:59)
[2023-02-09] MEDS: heparin drip 25,000 UNIT/500 ML PREMIX 43 UNIT IV (02:59)
[2023-02-09] MEDS: heparin 5,000 unit/mL INJ 1 mL IV (02:59)
[2023-02-09] MEDS: piperacillin-tazobactam 3.375 GM in sodium chloride 0.9% (plus) 50 ML IV (03:01)
[2023-02-09] MEDS: ketorolac 30 mg/mL INJ 15 MG IVP (03:03)
--- NOTE | 2023-02-09 03:11 | PC.NURSE ---
This nurse was assisting another patient, when this patient started screaming and cursing. ROSAURA Worrell was assisting the patient to the bathroom and patient was cursing at ROSAURA Worrell calling her 15 years old and stating the hospital is run by [age] year olds, yelling at her to hurry and unplug his IV pumps from the wall. As I walked toward the room, the patient had just been assisted to the bathroom and continued to yell and scream, I'm so fucking tired of this. I haven't taken a shit in four days. I can't fucking sleep. This place is a joke and no one has heard of a thing called compassion. This nurse went to ask the patient if he was hurt or if he needed anything while he was sitting on the toilet. The patient told this nurse, Go away, just leave me alone! A Code 10 was called overhead by ROSAURA Miguel Charge whom was sitting at the other nurses' station who could hear the patient yelling and cursing. Patient had assisted himself back to bed and was sitting on the edge of the bed. The patient continued to yell and curse, stating, No one has asked me if I've slept or taken a shit or if I'm hurting. Everyone keeps coming in here all bippity boppity talking about their mother's boyfriend's tea and chit chatting. I know I'm being an asshole but it's fucking sad when it has to come to this for me to get some attention. I want something to put me to sleep, not no aspirin or something that's not going to do anything, but something to put this 200 plus pound man to sleep until shift change. I know I've told you and you (pointing to this nurse and another nurse). First thing in the morning, I want my medical records. I want someone to take this out (referring to his PICC line), and I want the hell out of here. I'm tired of this. When administering medications, patient continued to complain and state that no one has done anything for him. This nurse attempted to educated patient that the patient received 100mg of trazodone before bedtime which is a sleeping pill and patient refused medication until morning to help his bowels move. The patient cut this nurse off from talking and stated, No you didn't, you might as well have given me aspirin powder. This nurse remained silent to let the patient vent. Patient stated he did not want his vital signs taken or anyone to bother him until shift change.
[2023-02-09] MEDS: HYDROcodone-acetaminophen 5-325 mg Tablet 1 TAB PO (09:52)
--- NOTE | 2023-02-09 10:10 | PM.DCS ---
Discharge Providers Date of Admission: 02/07/23 05:52 Date of Discharge: February 09, 2023 Attending Provider at Admission: Vanessa Wahl MD Attending Provider at Discharge: Ady Hatfield MD Primary Care Provider: Bushra Maddox MD Diagnoses at Discharge Discharge Diagnosis (1) Deep venous thrombosis of upper extremity: Status: Acute (2) Cellulitis: Status: Acute (3) Amphetamine abuse: Status: Acute (4) Depression: Status: Acute Qualifiers: Active/Remission status: currently active Depression Type: major depressive disorder Major depression episode severity: moderate Major depression recurrence: single episode Qualified Code(s): F32.1 - Major depressive disorder, single episode, moderate Permanent problem details: ADHD component Reason for Visit Reason for Visit: R arm infection Brief History: As per HPI : Eamon Johns is a 47 year old male with h/o depression, ADHD, insomnia presented with c/o right extremity pain and swelling since 3 days. He reports he had a sore on the back of the right upper arm which he popped and the extremity started swelling up. pain and swelling is accompanied by fever and redness. He was seen by his PCP 2 days ago who prescribed PO bactrim DS but there was no relief. He denies any IVDA. Hospital Course Hospital Course Patient was admitted to the hospital further evaluation and management of right upper limb edema. He was found to have extensive swelling on admission for which Doppler was done and consistent with extensive DVT and superficial vein thrombosis. He is also found to have cellulitis along with high-grade fever and leukocytosis. Initial work-up in the ER came back positive for amphetamines. Blood cultures remain negative. He was started on broad-spectrum antibiotics and anticoagulation. On admission CRP was elevated. CTA was done to rule out compartment syndrome. Patient responded well to the heparin drip and IV antibiotics and his leukocytosis resolved and edema was resolving. Patient's care was complicated by patient's multiple episodes of agitation, misbehavior with the nursing staff. Patient would have done better with longer duration of IV heparin use but was adamant to leave on the day of discharge. He has been discharged on oral Eliquis 10 mg twice daily for next 7 days followed by 5 mg twice daily for at least 6 months. After completion of 6 months he should have repeat upper limb Dopplers done to decide the completion of course. He is also to take oral Augmentin and Levaquin for next 1 week. Patient was explained in detail about the danger signs including [id number] of the fingertips or cyanosis. He is advised to return back to hospital if he has any of these above symptoms. Patient verbalized understanding. Documents of all the blood work and imaging was provided to the patient on discharge. Physical Exam Narrative: General: In distress because of pain, AOx3, HEENT: PERRLA, pupils bilaterally equal and reactive Chest: Normal vesicular breath sounds all over lung fontenot without any added sounds CVS: S1-S2 regular, no murmurs, no tachycardia, no gallops, no rubs Abdomen: Soft, nontender, no organomegaly, bowel sounds present, morbidly obese Neuro: No focal deficits, no facial deformity, AO x3, power 5/5 in all limbs Extremity: Right upper limb less edematous, whole arm, diffuse erythema now only localized to posterior upper arm. Small boil present at the posterior aspect of the arm. No fluctuation. Radial pulse palpated. All the peripheral skin intact, no cyanosis, good blood return. Discharge Data Studies Completed and Pending Completed Studies During Hospitalization Category Date Time Status CTA upper extremity [place] [[place] [address]] Stat Cat Scan 02/07/23 10:17 Completed XR chest 1V portable [id number] Routine Exams 02/07/23 20:38 Completed US venous duplex upper extremity RT [CV venous duplex Ultrasound 02/07/23 04:26 [place] [id number]] Stat Pending at discharge Category Date Time Status Blood Culture Stat Lab 02/07/23 05:57 Results [facility] Profile Routine Lab 02/07/23 20:47 Received PTT [Partial Thromboplastin Time] Timed Lab 02/09/23 09:00 Ordered Platelet Count Q2D Lab 02/11/23 04:00 Ordered Radiology Impressions Venous Duplex 02/07/23 04:26 IMPRESSION: 1. Extensive superficial vein thrombosis in the right upper extremity. 2. Deep vein thrombosis in the right radial vein. 3. Nondiagnostic evaluation of the right axillary, subclavian, and brachial veins. Selected images demonstrate patency of these veins, but the mash preparatory operator reports extensive thrombus in these veins. Recommend repeat ultrasound. ADDENDUM: 02/08/23 0742 THIS REPORT CONTAINS FINDINGS THAT MAY BE CRITICAL TO PATIENT CARE. The findings were verbally communicated via telephone conference with Dr. Boyer at 10:06 AM CDT on 02/07/2023. The findings were acknowledged and understood. Upper Extremity CTA 02/07/23 10:17 IMPRESSION: 1. Limited opacification RIGHT upper extremity arterial system due to contrast injection and motion. 2. No occlusion or stenosis within the visualized RIGHT subclavian, axillary or brachial arteries. Arteries below the elbow are limited. 3. Extensive acute and posterior noted within a large portion of the superficial cephalic vein and portions of the deep brachial vein. Suspected additional superficial thrombophlebitis distal to the elbow joint. 4. Large amount of soft tissue edema surrounding the mid humerus through the forearm. Chest X-Ray 02/07/23 20:38 IMPRESSION: No acute findings. Microbiology 02/07/23 10:00 Nose MRSA Culture - Final 02/07/23 05:57 Blood Blood Culture - Preliminary NEGATIVE TO DATE 02/07/23 05:55 Blood Blood Culture - Preliminary NEGATIVE TO DATE Laboratory Results WBC 9.0 10^3/uL (4.0-10.0) 02/09/23 01:07 RBC 4.68 10^6/uL (4.1-5.3) 02/09/23 01:07 Hgb 13.2 g/dL (11.7-16.6) 02/09/23 01:07 Hct 40.3 % (42.0-52.0) L 02/09/23 01:07 MCV 86.1 fl (80-94) 02/09/23 01:07 MCH 28.2 pg (28.0-34.0) 02/09/23 01:07 MCHC 32.8 g/dL (30.0-36.0) 02/09/23 01:07 RDW 13.4 % (12.1-15.1) 02/09/23 01:07 Plt Count 224 10^3/cmm (130-400) 02/09/23 01:07 MPV 11.2 fL (7.4-10.4) H 02/09/23 01:07 Neut % (Auto) 70.7 % 02/09/23 01:07 Lymph % (Auto) 14.8 % 02/09/23 01:07 [place] % (Auto) 9.6 % 02/09/23 01:07 Eos % (Auto) 3.6 % 02/09/23 01:07 Baso % (Auto) 0.4 % 02/09/23 01:07 Neut # (Auto) 6.37 10^3/uL (1.8-7.7) 02/09/23 01:07 Lymph # (Auto) 1.3 10^3/uL (0.8-4.8) 02/09/23 01:07 [place] # (Auto) 0.9 10^3/uL (0.2-0.9) 02/09/23 01:07 Eos # (Auto) 0.3 10^3/uL (0.0-0.8) 02/09/23 01:07 Baso # (Auto) 0.0 10^3/uL (0.0-0.1) 02/09/23 01:07 Nucleated RBC % (auto) 0 % 02/09/23 01:07 Nucleated RBCs # 0.0 /100WBC 02/09/23 01:07 ESR 7 mm/hr (0-10) 02/07/23 04:20 APTT 49.7 SECONDS (23.9-36.7) H 02/09/23 02:05 Sodium 138 mmol/L (136-145) 02/09/23 02:05 Potassium 3.8 mmol/L (3.5-5.1) 02/09/23 02:05 Chloride 106 mmol/L (98-107) 02/09/23 02:05 Carbon Dioxide 22 mmol/L (22-29) 02/09/23 02:05 Anion Gap 13.8 (5-19) 02/09/23 02:05 BUN 13 mg/dL (6-20) 02/09/23 02:05 Creatinine 0.7 mg/dL (0.7-1.2) 02/09/23 02:05 GFR Calculation 120.4 mL/min (90-130) 02/09/23 02:05 Glucose 101 mg/dL (65-115) 02/09/23 02:05 Estimat Average Glucose 120 02/07/23 04:20 Hemoglobin A1c 5.8 % (4.0-6.0) 02/07/23 04:20 Calculated Osmolality 286 mOsm/kg (285-295) 02/09/23 02:05 Calcium 7.9 mg/dL (8.5-10.5) L 02/09/23 02:05 Iron 20 ug/dL (59-158) L 02/07/23 04:20 TIBC 203 mcg/dl 02/07/23 04:20 % Saturation 9.8 % (20-50) L 02/07/23 04:20 Unsat Iron Binding 183 ug/dL (112-347) 02/07/23 04:20 Total Bilirubin 0.6 mg/dL (0.15-1.2) 02/09/23 02:05 AST 22 U/L (0-40) 02/09/23 02:05 ALT 28 U/L (0-41) 02/09/23 02:05 Alkaline Phosphatase 47 U/L (40-130) 02/09/23 02:05 C-Reactive Protein 126.0 mg/L (0.0-4.9) H 02/09/23 02:05 Total Protein 5.7 g/dL (6.6-8.7) L 02/09/23 02:05 Albumin 2.8 g/dL (3.5-5.2) L 02/09/23 02:05 Globulin 2.9 g/dL (1.3-4.6) 02/09/23 02:05 Triglycerides 99 mg/dL (0-150) 02/08/23 03:14 Cholesterol 100 mg/dL (0-200) 02/08/23 03:14 LDL Cholesterol, Calc 49 mg/dL (50-129) L 02/08/23 03:14 Total VLDL Cholesterol 20 mg/dL (0-30) 02/08/23 03:14 HDL Cholesterol 31 mg/dL (60-100) L 02/08/23 03:14 Cholesterol/HDL Ratio 3.23 mg/dL (1.0-5.00) 02/08/23 03:14 Vitamin B12 265 pg/mL (232-1245) 02/07/23 04:20 Folate 9.6 ng/mL (4.5-32.2) 02/08/23 03:14 Procalcitonin 0.48 ng/mL (0-0.5) 02/07/23 04:20 TSH 3.63 uIU/mL (0.27-4.20) 02/07/23 04:20 TSH Cancelled 02/07/23 04:20 Urine Color Yellow (Yellow) 02/07/23 12:45 Urine Appearance Clear (CLEAR) 02/07/23 12:45 Urine pH 5 (5-7) 02/07/23 12:45 Ur Specific [place] 1.010 (1.005-1.030) 02/07/23 12:45 Urine Protein Neg (Negative) 02/07/23 12:45 Urine Glucose (UA) Norm (Normal) 02/07/23 12:45 Urine Ketones Negative (Negative) 02/07/23 12:45 Urine Blood Neg (Negative) 02/07/23 12:45 Urine Nitrate Negative (Negative) 02/07/23 12:45 Urine Bilirubin Neg (Negative) 02/07/23 12:45 Urine Urobilinogen 4 mg/dL (Negative) H 02/07/23 12:45 Ur Leukocyte Esterase Negative (Negative) 02/07/23 12:45 Urine Opiates Screen Positive ng/mL (Negative) H 02/07/23 12:45 Ur Barbiturates Screen Negative ng/mL (Negative) 02/07/23 12:45 Ur Phencyclidine Scrn Negative ng/mL (Negative) 02/07/23 12:45 Ur Amphetamines Screen Positive ng/mL (Negative) H 02/07/23 12:45 U Benzodiazepines Scrn Negative ng/mL (Negative) 02/07/23 12:45 Urine Cocaine Screen Negative ng/mL (Negative) 02/07/23 12:45 U Marijuana (THC) Screen Negative ng/mL (Negative) 02/07/23 12:45 Hepatitis A IgM Ab Non-reactive (Nonreactive) 02/07/23 20:47 Hep Bs Antigen Non-reactive (Nonreactive) 02/07/23 20:47 Hep Bs Antibody 3.5 (11.5-1000) L 02/07/23 20:47 Hep B Core Total Ab Non-reactive (Nonreactive) 02/07/23 20:47 Hepatitis C Antibody Non-reactive (Nonreactive) 02/07/23 20:47 HIV 1&2 Ab & HIV 1 Ag Non-reactive (Non-Reactiv) 02/07/23 20:47 HIV 1&2 Antibody Non-reactive (Non-Reactiv) 02/07/23 20:47 Vitals Last Vital Signs Temp 99.7 F H 02/09/23 00:00 Pulse 107 H 02/09/23 00:00 Resp 18 02/09/23 00:00 BP 142/88 02/09/23 00:00 Pulse Ox 97 02/09/23 00:00 O2 Del Method Room Air 02/08/23 12:00 Discharge Plan Discharge Patient Disposition: Home Condition: Stable Prescriptions: New hydrocodone-acetaminophen 5-325 mg Tablet 1 tab PO Q8H PRN (Reason: Moderate Pain) Qty: 20 0RF tramadol 50 mg Tablet 50 mg PO Q6H PRN (Reason: Moderate Pain) Qty: 20 0RF Eliquis DVT-PE Treat 30D Start 5 mg (74 tabs) tablets,dose pack See Rx Instructions .ROUTE .COMPLEX Qty: 74 0RF Rx Instructions: orally per package directions Augmentin 500-125 mg tablet 1 tab PO BID Qty: 14 0RF levofloxacin 500 mg tablet 500 mg PO Q24H 7 Days Qty: 7 0RF Discontinued sulfamethoxazole-trimethoprim [Bactrim DS] 800-160 mg tablet 1 tab PO BID 10 Days Qty: 20 0RF Discharge Orders: Discharge Order (Routine); Ordered 02/09/23 Ordered By: Ady Hatfield Referrals: Bushra Maddox MD [Primary Care Provider] - 02/14/23 8:00 am () Discharge Diet: Regular Discharge Activity: Resume usual activity and Increase activity as tolerated Patient Instructions: Hydrocodone/Acetaminophen (By mouth), Amoxicillin/Clavulanate Potassium (By mouth) (Augmentin, Augmentin..., Tramadol (By mouth), Levofloxacin (By mouth), Apixaban (By mouth) (Eliquis), Opioid Safety Activity Restrictions/Additional Instructions: On 2 antibiotics Augmentin and Levaquin for next 7 days. Take Augmentin twice daily and Levaquin once daily. Take blood thinner which is the Eliquis twice daily going forward. You will take 10 mg twice daily for next 1 week followed by 5 mg twice daily. You will be on the blood thinners for at least 6 months. You should have a repeat ultrasound of the arm in 6 months and then decide about further course of blood thinners. You are on 2 pain medications including Imperial and tramadol. Take Imperial every 8 hours as needed and tramadol every 6 hours as needed. For more pain medications please follow-up with a primary care provider within next 1 week. If you feel any tingling or numbness or cyanosis of your arm and fingers please visit your nearest ER. Please try to abstain from recreational drugs. Discharge Attestations Time Spent in Discharge Care*: greater than 30 min Specific Discharge Activities: educating patient, discussing with pcp/other providers, discussing with case packer and sealer/social workers/dc planners, documenting/other paperwork and evaluating patient/reviewing data Status at Discharge: Cognitive status at discharge: cognitively intact, Behavioral status at discharge: can be uncooperative and independent in ADL's, Functional status at discharge: independent ambulation, Overall status at discharge: patient is progressing back to baseline Quality Metrics Clinical Quality Measures [ Venous Thromboembolism { Contraindication to Overlap Therapy: None; Overlap threrpy ordered; VTE Discharge Education: Education about anticoagulant therapy/Care Notes given, Education about treatment options/disease process, Medication side effects education, INR/lab monitoring education as applicable, Follow-up arranged, Other; Deep Vein Thrombosis/Pulmonary Embolism Present on Admission: Yes;}] Coding Level of Care Code 93381 Total time (in minutes) for Discharge: 80 Diagnoses Deep venous thrombosis of upper extremity I82.629 Cellulitis L03.90 Amphetamine abuse F15.10 Depression F32.1 Active/Remission status: currently active Depression Type: major depressive disorder Major depression episode severity: moderate Major depression recurrence: single episode
[2023-02-09 10:57] VITALS: BP 142/88; PULSE 107; RESP 18; TEMP 37.6; O2SAT 97
--- NOTE | 2023-02-09 10:58 | PC.NURSE ---
Discharge Note Patient discharged to home via private vehicle accompanied by self. Discharge instructions reviewed with patient and/or practice representative. Mobile pharmacy medications and/or prescriptions provided. Belongings/home medications returned.
--- NOTE | 2023-02-09 11:00 | PC.NURSE ---
Took out patient's IV located in his left forearm and his PICC line in his left upper arm. Applied 2x2 and [place] to site. Discharge instructions explained.
[2023-02-09 14:03] LABS: Anti-Double Strand DNA AB <1 IU/mL; Jo-1 Antibody <1.0 NEG AI (<1.0 NEG); SM/RNP Antibodies <1.0 NEG AI (<1.0 NEG); SS-B/LA IGG <1.0 NEG AI (<1.0 NEG); Scleroderma Ab(Scl-70) Ab <1.0 NEG AI (<1.0 NEG); Ss-A/Ro Igg <1.0 NEG AI (<1.0 NEG)
== END 2023-02-09 10:58 | disposition home or self-care (01) | DRG 300 ==
LOC: ER 05:26 → MEDSURG 05:52
PROVIDERS: Admitting Provider Internal Medicine; Emergency Provider Emergency Medicine; PCP Family Medicine; Visit Provider Student in an Organized Health Care Education/Training Program
DX: I82.621 Acute embolism and thrombosis of deep veins of right upper extremity (principal); F32.1 Major depressive disorder, single episode, moderate; L03.113 Cellulitis of right upper limb; F90.9 Attention-deficit hyperactivity disorder, unspecified type; G47.00 Insomnia, unspecified; F15.10 Other stimulant abuse, uncomplicated; Z87.820 Personal history of traumatic brain injury
CPT/HCPCS: 36415; 36569; 36592; 71045; 73206; 80053; 80061; 80306; 81003; 82607; 82746; 83036; 83540; 83550; 84145; 84443; 85025; 85651; 85730; 86140; 86225; 86235; 86705; 86706; 86709; 86803; 87040; 87340; 87641; 87806; 93005; 93971; 96372; 96374; 96375; 99222; 99285; C1751; C9113; J1170; J1644; J1650; J1885; J2270; J2405; J2543; J3372; J3480; J7030; Q9967